=== PATIENT | female | born 1960 | race Caucasian/White ===

== ENCOUNTER 2017-10-27 08:40 | Outpatient (CLI) | payer BC | END 2017-10-27 08:41 | disposition home or self-care (01) | LOC: BICMAMMO 08:40 | PROVIDERS: ATTEND Obstetrics & Gynecology | DX: Z12.31 Encounter for screening mammogram for malignant neoplasm of breast (principal); Z13.820 Encounter for screening for osteoporosis; M85.80 Other specified disorders of bone density and structure, unspecified site | CPT/HCPCS: 77063; 77067; 77080 ==